=== PATIENT | male | born 1995 | race African-American/Black ===

== ENCOUNTER 2020-06-08 04:42 | Day surgery (SDC) | payer OTHER ==
[2020-06-07 15:53] VITALS: BMI 25.6
[2020-06-08 14:21] LABS: HEMOGLOBIN 15.9 GM/dL (11.7-16.9); MCH 30.8 pg (25.7-33.7); MCHC 35.2 g/dl (32.0-35.9); MEAN CELL VOLUME 87.5 fl (80-96); MEAN PLT VOLUME 8.7 fl (7.5-11.1); PLATELET COUNT 278 K/MM3 (134-434); RBC 5.14 M/mm3 (4.00-5.60); RDW 12.5 % (11.9-15.9); WHITE BLOOD COUNT 3.4 K/mm3 (4.0-10.0)
--- NOTE | 2020-06-08 14:23 | HP ---
History & Physical Update - History History: No Change - Physical Physical: No Change - Assessment Assessment: No Change - Plan Plan: No Change
--- NOTE | 2020-06-08 14:26 | OP ---
Operative Note - Note: Operative Date: 06/08/20 Pre-Operative Diagnosis: R ureteral calculus Operation: R ureteroscopic laser lithotripsy and JJ stent change Findings: R ureteral calculus Post-Operative Diagnosis: Same as Pre-op Surgeon: Viraj Villatoro Anesthesiologist/PUBLIC WORKS SUPERVISOR: Odalis Buck Anesthesia: General Specimens Removed: R ureteral calculi, R JJ stent Estimated Blood Loss (mls): 0 Drains & Tubes with Location: 6 fr 26 cm R JJ stent Operative Report Dictated: Yes
[2020-06-08 14:32] LABS: INR 1.07 (0.83-1.09); PROTHROMBIN TIME (PATIENT) 13.1 SEC (9.7-13.0)
[2020-06-08 14:49] LABS: ALBUMIN 3.9 g/dl (3.4-5.0); BILIRUBIN,TOTAL 0.8 mg/dL (0.2-1); BLOOD UREA NITROGEN 10.4 mg/dL (7-18); CREATININE 1.4 mg/dL (0.55-1.3); POTASSIUM 4.3 mmol/L (3.5-5.1); TOT PROT 8.5 g/dl (6.4-8.2)
[2020-06-08] MEDS ORDERED: PROPOFOL 20 ML ONE ×2 (15:07→15:48)
[2020-06-08] MEDS ORDERED: MIDAZOLAM HCL 2 MG/2 ML SINGLE DOSE VIAL ONE (15:08)
[2020-06-08] MEDS ORDERED: ceFAZolin SODIUM 1 GM VIAL ONE (15:09)
[2020-06-08] MEDS ORDERED: DEXAMETHASONE SOD PHOSPHATE 4 MG/1 ML VIAL ONE (15:09)
[2020-06-08] MEDS ORDERED: ONDANSETRON 4 MG/2 ML VIAL IVPUSH PRN (15:43)
[2020-06-08] MEDS ORDERED: oxyCODONE HCL 5 MG TABLET PO PRN (15:43)
[2020-06-08] MEDS ORDERED: LACTATED RINGERS SOLUTION 1,000 ML IV SCH (15:45)
[2020-06-08] MEDS ORDERED: ceFAZolin SODIUM 1 GM VIAL IVPB ONE (15:49)
[2020-06-08 19:08] VITALS: BP 128/70; PULSE 68; TEMP 97.8
--- NOTE | 2020-06-09 11:44 | OP ---
DATE OF OPERATION: 06/08/2020 PREOPERATIVE DIAGNOSIS: Right ureteral calculus. POSTOPERATIVE DIAGNOSIS: Right ureteral calculus. PROCEDURE: Right ureteroscopic laser lithotripsy and double-J stent change. SURGEON: Viraj Solomon MD SALES PROJECT ADMINISTRATOR: None. ANESTHESIA: General via laryngeal mask. ANESTHESIOLOGIST: Odalis Buck MD SPECIMENS: Right ureteral calculi, right double-J stent. CULTURES: None. DRAINS: A 6-Bulgarian 26-cm right double-J stent. ESTIMATED BLOOD LOSS: None. COMPLICATIONS: None. DESCRIPTION OF PROCEDURE: Patient was brought in the operating room, placed on the operating table in supine position. After administration of general anesthesia, intravenous antibiotics were administered, sequential compression devices were placed. Patient was placed in the dorsal lithotomy position. Perineum and genitals were prepped and draped in the usual sterile manner. A 22-Bulgarian cystoscope was inserted into the bladder. The anterior urethra was normal. The prostatic urethra was normal. The bladder was entered, thoroughly inspected. There were no tumors or stones. There was a right ureteral double-J stent in good position. It was grasped at the tip, brought to the urethral meatus, cannulated with a 0.038 guidewire advanced to the level of the right renal pelvis under fluoroscopic and direct visual guidance. The cystoscope was removed. Semirigid ureteroscope was inserted alongside the guidewire. Distal ureteral stone was visualized. Using a 360-micron laser fiber, laser lithotripsy was done until the stone was fragmented into small pieces which were irrigated out into the bladder and removed. Cystoscope was backloaded. Retrograde pyelogram demonstrated no extravasation of contrast, no additional filling defects. Guidewire was left in place, and a 6-Bulgarian 26-cm right double-J stent was inserted over the guidewire under direct visual and fluoroscopic guidance, leaving 1 coil in the renal pelvis and 1 coil in the bladder. Bladder was emptied, the instruments removed. Stent was secured to the penis with a suture and a Tegaderm. He will be followed in the office next week for stent removal. VIRAJ SOLOMON M.D. [id number]
--- NOTE | 2020-06-13 18:09 | PATH ---
Surgical Pathology Report Patient Name: CHAD ROJO Med. Rec. #: [id number] /Age/Gender: 1995 (Age: 24) / M Account: [id number] Location: [facility] Taken: 06/08/2020 Received: 06/11/2020 Reported: 06/13/2020 Physicians: Viraj Villatoro M.D. Specimen(s) Received A: RIGHT URETERAL STENT B: RIGHT URETERAL STONE Clinical History Right ureteral stone Final Diagnosis A. RIGHT URETERAL STENT, REMOVAL: CONSISTENT WITH SEGMENT OF STENT. GROSS ONLY. B. RIGHT URETERAL STONE, REMOVAL: CONSISTENT WITH CALCULI. SENT FOR CHEMICAL ANALYSIS. Electronically Signed Dayne Smith M.D. Gross Description A. Received fresh labeled "right ureteral stent," is a 37 cm in length blue, coiled portion of tubing, consistent with a ureteral stent. No soft tissue is present. No sections are submitted, gross only. B. Received fresh labeled "right ureteral stone," is a 0.9 x 0.6 x 0.1 cm aggregate of goncalves, irregular to fragmented calculi. The specimen is sent for chemical analysis. DL/06/11/2020 saudi/06/11/2020
== END 2020-06-08 19:30 | disposition home or self-care (01) ==
LOC: JASU-SURG 04:42
PROVIDERS: ATTEND Urology
PROC: 0T768DZ Dilation of Right Ureter with Intraluminal Device, Via Natural or Artificial Opening Endoscopic (ICD-10-PCS; 2020-06-08)
PROC: 0TC68ZZ Extirpation of Matter from Right Ureter, Via Natural or Artificial Opening Endoscopic (ICD-10-PCS; principal; 2020-06-08 14:30)
DX: N20.1 Calculus of ureter (principal)
CPT/HCPCS: 36415; 76000-TC-FY; 80053; 82360; 85027; 85610; 88300-TC; 94760